=== PATIENT | female | born 1995 | race Two or more races ===

== ENCOUNTER 2024-03-05 21:52 | Emergency (ER) | payer OTHER ==
[~2024-03-05] VITALS: Ht 170.2 cm; Wt 68.0 kg
[2024-03-05] MEDS ORDERED: NAPROXEN 500 MG TABLET ONE (22:16)
[2024-03-05] MEDS ORDERED: ONDANSETRON HCL 4 MG TABLET ONE (22:16)
[2024-03-05] MEDS: NAPROXEN 500 MG TABLET PO ONE (22:20)
[2024-03-05] MEDS: ONDANSETRON HCL 4 MG TABLET PO ONE (22:20)
[2024-03-05 22:27] LABS: BASOPHILS % (AUTO) 0.2 % (0.0-2.0); CALCIUM 8.7 mg/dL (8.5-10.1); CREATININE 0.7 mg/dL (0.6-1.3); DIFFERENTIAL COMMENT 1; EOSINOPHILS # (AUTO) 0.3 K/uL (0.0-0.7); HEMATOCRIT 38.7 % (31.2-41.9); HEMOGLOBIN 13.2 g/dL (10.9-14.3); LYMPHOCYTES # (AUTO) 0.7 K/uL (0.8-4.8); LYMPHOCYTES % (AUTO) 10.6 % (20.5-51.5); MEAN CORPUSCULAR HGB CONC 34 g/dL (32.3-35.6); MEAN CORPUSCULAR VOLUME 82.4 fL (75.5-95.3); MONOCYTES # (AUTO) 0.3 K/uL (0.1-1.30); MONOCYTES % (AUTO) 4.7 % (0.0-11.0); NEUTROPHILS # (AUTO) 5.7 K/uL (1.8-8.9); NEUTROPHILS % (AUTO) 80.5 % (38.5-71.5); PLATELET COUNT (AUTO) 280 K/uL (179-408); POTASSIUM 3.3 mmol/L (3.5-5.1); RED CELL DISTRIBUTION WIDTH 14.3 % (12.3-17.7)
[2024-03-05 22:33] LABS: ALBUMIN 3.9 g/dL (3.4-5.0); BILIRUBIN,TOTAL 0.6 mg/dL (0.2-1.0); MAGNESIUM 1.5 mg/dL (1.8-2.4); TOTAL PROTEIN, SERUM 7.5 g/dL (6.4-8.2)
[2024-03-05 22:37] LABS: *BLOOD, URINE 3+ (NEGATIVE); *CLARITY,URINE CLEAR (CLEAR); *COLOR,URINE YELLOW (YELLOW); *KETONES,URINE 1+ (NEGATIVE); *PROTEIN,URINE TRACE (NEGATIVE); *UROBILINOGEN,URINE 0.2 E.U./dl (NORMAL); LEUKOCYTE ESTERASE ,URINE NEGATIVE (NEGATIVE); NITRITE, URINE NEGATIVE (NEGATIVE); PH,URINE 5.5 (5.0-8.0); UGLUCOSE NEGATIVE (NEGATIVE)
[2024-03-05 22:49] LABS: *BILIRUBIN,URIN 1+ (NEGATIVE)
[2024-03-05 22:56] LABS: *URINE HCG, QUAL NEGATIVE (NEGATIVE)
[2024-03-05] MEDS ORDERED: MAGNESIUM OXIDE 400 MG TABLET ONE ×2 (23:16)
[2024-03-05] MEDS ORDERED: POTASSIUM CHLORIDE 20 MEQ TAB.PRT.SR ONE (23:16)
[2024-03-05] MEDS ORDERED: NAPR-1009 PO (23:18)
[2024-03-05] MEDS ORDERED: ONDA4TAB5 PO (23:18)
[2024-03-05] MEDS ORDERED: ACET-2030 PO (23:18)
[2024-03-05] MEDS: POTASSIUM CHLORIDE 20 MEQ TAB.PRT.SR PO ONE (23:19)
[2024-03-05] MEDS: MAGNESIUM OXIDE 400 MG TABLET PO ONE (23:19)
[2024-03-05 23:30] VITALS: BP 120/88; TEMP 97.8; O2SAT 99
[2024-03-05 23:32] LABS: WBC,URINE 0-3 /HPF (0-3)
[2024-03-05 23:33] LABS: BACTERIA,URINE FEW /HPF (NONE SEEN); CALCIUM OXALATE CRYSTALS,UR FEW /HPF (NONE SEEN); SQUAMOUS EPITHELIAL CELL,UR FEW /HPF (NONE SEEN)
[2024-03-05 23:34] LABS: MUCUS,URINE MANY /LPF (0-FEW)
== END 2024-03-05 23:31 | disposition home or self-care (01) ==
LOC: ER 21:52
DX: R10.9 Unspecified abdominal pain (principal); R51.9 Headache, unspecified; R11.0 Nausea; J45.909 Unspecified asthma, uncomplicated; R56.9 Unspecified convulsions; R55 Syncope and collapse; V43.62XA Car passenger injured in collision with other type car in traffic accident, initial encounter; Y93.89 Activity, other specified; Y92.488 Other paved roadways as the place of occurrence of the external cause; Y99.8 Other external cause status
CPT/HCPCS: 36415; 70450; 71045; 72125; 83605; 83735; 84703; 85025; A4606; A4663; Q0162